=== PATIENT | male | born 1995 | race Caucasian/White ===

== ENCOUNTER 2021-09-25 06:14 | Day surgery (SDC) | payer OTHER ==
[~2021-09-25] VITALS: Ht 175.3 cm; Wt 77.2 kg
[~2021-09-25 06:14] MED LIST: ceFAZolin SOD 2 GM in IV 1 EA IV ONE
[2021-09-25] MEDS ORDERED: LR 1,000 ML IV SCH ×2 (06:35→09:45)
[2021-09-25] MEDS ORDERED: ACET-897 PO (06:35)
[2021-09-25] MEDS ORDERED: MIDAZOLAM INJ 2MG/2ML VIAL (J2250 PER 1MG) As Ordered ONE (07:08)
[2021-09-25] MEDS ORDERED: fentaNYL 100 MCG/2 ML INJECTION As Ordered ONE (07:09)
[2021-09-25] MEDS ORDERED: BUPIVACAINE/EPIN 0.25% 30 ML VIAL As Ordered ONE (07:10)
[2021-09-25] MEDS ORDERED: LIDOCAINE 2% 100MG/5ML SDV (FOR ANES.) As Ordered ONE ×2 (07:11→11:04)
[2021-09-25] MEDS ORDERED: dexameTHASONE 4 MG/ML 1ML VIAL (J1100 PER 1MG) As Ordered ONE ×2 (07:13→08:01)
[2021-09-25] MEDS ORDERED: TRANEXAMIC ACID 100 MG/ML 10ML VIAL As Ordered ONE (07:36)
[2021-09-25] MEDS ORDERED: ONDANSETRON 4MG 2ML VIAL As Ordered ONE (08:01)
[2021-09-25] MEDS ORDERED: propofoL 200 MG/20 ML VIAL As Ordered ONE (08:01)
[2021-09-25] MEDS ORDERED: ACETAMINOPHEN 1000MG 100ML IV BTL (OFIRMEV) (J0131 PER 10MG) As Ordered ONE (08:02)
[2021-09-25] MEDS ORDERED: KETOROLAC 60MG 2ML VIAL As Ordered ONE (08:35)
[2021-09-25] MEDS ORDERED: BUPIVACAINE LIPOSOME/PF 1.3% 20ML VIAL (13.3MG/ML)(EXPAREL) As Ordered ONE (09:02)
[2021-09-25] MEDS ORDERED: BUPIVACAINE HCL 0.25% 10ML VIAL As Ordered ONE (09:04)
[2021-09-25] MEDS ORDERED: oxyCODONE 5MG TAB PO PRN (09:45)
[2021-09-25] MEDS ORDERED: ONDANSETRON 4MG 2ML VIAL IV PRN (09:45)
[2021-09-25] MEDS ORDERED: fentaNYL 100 MCG/2 ML INJECTION IV PRN (09:45)
[2021-09-25 11:18] VITALS: BP 114/73
== END 2021-09-25 12:08 | disposition home or self-care (01) ==
LOC: M SDC 06:14
PROVIDERS: ATTEND Orthopaedic Surgery
DX: T79.7XXD Traumatic subcutaneous emphysema, subsequent encounter (principal); T79.A22D Traumatic compartment syndrome of left lower extremity, subsequent encounter; G89.29 Other chronic pain; Z79.899 Other long term (current) drug therapy; Z79.82 Long term (current) use of aspirin; Z79.891 Long term (current) use of opiate analgesic
CPT/HCPCS: 27892; C9290; J0131; J0690; J1100; J1885; J2405; J3010